=== PATIENT | male | born 1980 | race Caucasian/White ===

== ENCOUNTER 2019-01-05 13:05 | Emergency (ER) | payer OTHER ==
[~2019-01-05] VITALS: Ht 175.3 cm; Wt 117.0 kg
[~2019-01-05 13:05] MED LIST: AMOX1TAB12 PO; KETO10TA2 PO
== END 2019-01-05 18:43 | disposition home or self-care (01) ==
LOC: ER 13:05
DX: B34.9 Viral infection, unspecified (principal)

== ENCOUNTER 2022-01-06 16:24 | Emergency (ER) | payer OTHER ==
[~2022-01-06] VITALS: Ht 175.3 cm; Wt 122.5 kg
== END 2022-01-06 19:32 | disposition home or self-care (01) ==
LOC: ER 16:24
DX: M77.52 Other enthesopathy of left foot and ankle (principal)

== ENCOUNTER 2022-08-03 03:49 | Emergency (ER) | payer OTHER ==
[~2022-08-03] VITALS: Ht 175.3 cm; Wt 127.0 kg
[2022-08-03] MEDS ORDERED: CEPHALEXIN500 MG PO (05:59)
== END 2022-08-03 06:07 | disposition home or self-care (01) ==
LOC: ER 03:49
DX: S01.82XA Laceration with foreign body of other part of head, initial encounter (principal); W45.8XXA Other foreign body or object entering through skin, initial encounter; Y93.9 Activity, unspecified; Y92.9 Unspecified place or not applicable